=== PATIENT | female | born 1965 ===

== ENCOUNTER → 2019-04-28 18:03 | Outpatient (ROUT) | payer MEDICARE, SELFPAY ==
[2019-04-28 18:40] LABS: Body Fluid Red Blood Cells 2342 /uL; Body Fluid Tot Nucleated Cells 364 /uL
[2019-04-28 19:59] LABS: Body Fluid Appearance HAZY; Body Fluid Color S
[2019-04-28 20:00] LABS: Body Fluid Clotted? NO CLOTS PRESENT; Eosinophils Body Fluid 1 %; Mononuclear WBC Body Fluid 91 %; Polynuclear WBC Body Fluid 8 %
== END ==
PROVIDERS: Visit Provider Internal Medicine Rheumatology
DX: L40.50 Arthropathic psoriasis, unspecified (principal)
CPT/HCPCS: 89051